=== PATIENT | female | born 2000 | race Caucasian/White ===

== ENCOUNTER 2022-02-01 08:50 | Emergency (ER) | payer BC ==
[~2022-02-01] VITALS: Ht 165.1 cm; Wt 100.0 kg
[2022-02-01 09:00] VITALS: BP 117/74; TEMP 98.1
[2022-02-01] MEDS ORDERED: CLARITIN 1010 MG/TAB PO (09:20)
[2022-02-01] MEDS ORDERED: SINGULAIR 110 MG/TAB PO (09:20)
[2022-02-01] MEDS ORDERED: ROBAXIN 75750 MG/TAB PO (10:14)
[2022-02-01] MEDS ORDERED: ELIQUIS 5MG PO (10:14)
[2022-02-01 10:25] VITALS: PULSE 90
[2022-02-01] MEDS ORDERED: NORCO 325 MG-51 TAB PO (12:36)
== END 2022-02-01 10:30 | disposition home or self-care (01) ==
LOC: COL.ER 08:50
DX: I82.411 Acute embolism and thrombosis of right femoral vein (principal); Z98.890 Other specified postprocedural states; Z79.01 Long term (current) use of anticoagulants
CPT/HCPCS: J1650